=== PATIENT | female | born 1960 | race Caucasian/White ===

== ENCOUNTER 2017-12-14 14:36 | Emergency (ER) | payer OTHER ==
--- NOTE | 2017-12-14 15:55 | RAD ---
CHEST 2 VIEWS: Date: 12/14/17 HISTORY: Right anterior inferior chest wall pain. FINDINGS: Heart size and mediastinum are within normal limits. The lungs appear clear of any infiltrative proce ss. I do not appreciate any definite rib fractures. Bones appear somewhat demineralized. IMPRESSION: No active intrathoracic disease. POS: [facility]
== END 2017-12-14 15:31 | disposition home or self-care (01) ==
LOC: SCSER 14:36
DX: S29.011A Strain of muscle and tendon of front wall of thorax, initial encounter (principal); X58.XXXA Exposure to other specified factors, initial encounter
CPT/HCPCS: 71046